=== PATIENT | female | born 1945 | race Caucasian/White ===

== ENCOUNTER 2021-08-01 13:51 | Outpatient (REF) | payer MEDICARE, OTHER, SELFPAY ==
[2021-08-01 14:14] LABS: Binax Internal Control QC Valid; Binax Now Covid-19 Ag Negative (Negative); Binax Performed by: HO.BONILM
== END 2021-08-01 13:52 | disposition home or self-care (01) ==
LOC: HO.HMGCLDS 13:51
PROVIDERS: Visit Provider Nurse Practitioner Family
DX: Z13.89 Encounter for screening for other disorder (principal)